=== PATIENT | male | born 1980 | race African-American/Black ===

== ENCOUNTER 2018-04-18 11:40 | Emergency (ER) | payer OTHER ==
[~2018-04-18] VITALS: Ht 185.4 cm; Wt 92.5 kg
[2018-04-18] MEDS ORDERED: GABAPENTIN600 MG ORAL (12:06)
[2018-04-18] MEDS ORDERED: AMLODIPINE BES2.5 MG ORAL (12:06)
--- NOTE | 2018-04-18 12:42 | Emergency Room Report ---
History of Present Illness General Chief Complaint: Medical Clearance Source: Patient Present Illness HPI 37-year-old male patient presents the ER requesting medical clearance to return back to work following syncopal episode. Patient reports that April 15 he went out and had a lot to drink. Reports that the following day at work he passed out, states that he was tired prior to passing out. Patient reports that his work asked him to come to the ER to be medically cleared to return back to work. Patient reports no history of's syncopal episodes in the past. Reports history of high blood pressure however denies history of stroke or heart attack. Patient reports that he had what was called a seizure once several months ago following similar episode of drinking. Denies history of seizure disorder. Reports has not seen a neurologist since that time. Denies fever, chest pain, shortness of breath. Reports "passing out" was observed and he did not hit his head. Denies vomiting or vision changes. Allergies: Coded Allergies: No Known Allergies (Unverified , 04/18/18) Patient History Past Medical History: see triage record Reviewed Nursing Documentation: PMH: Agreed; PSxH: Agreed Nursing Documentation-PMH Past Medical History: No History, Except For Hx Hypertension: Yes Review of Systems All Other Systems: negative except mentioned in HPI Physical Exam Vital Signs Date Time Temp Pulse Resp B/P (MAP) Pulse Ox O2 Delivery O2 Flow Rate FiO2 04/18/18 12:00 98.6 95 17 160/98 99 Room Air Sp02 EP Interpretation: reviewed, normal General Appearance: well appearing, no apparent distress, alert, GCS 15, non- toxic Head: normocephalic, atraumatic Eyes: bilateral eye normal inspection, bilateral eye PERRL ENT: hearing grossly normal, normal pharynx, no angioedema, normal voice, TMs + canals normal, uvula midline, moist mucus membranes Neck: full range of motion Respiratory: lungs clear, normal breath sounds, no rhonchi, no respiratory distress, no accessory muscle use, no wheezing, speaking full sentences Cardiovascular #1: regular rate, rhythm, no edema Gastrointestinal: non tender, soft, no mass, non-distended, no guarding, no rebound Genitourinary: no CVA tenderness Musculoskeletal: back normal, digits/nails normal, gait/station normal, normal range of motion, non-tender Neurologic: alert, oriented x3, responsive, engine mechanic III-XII nml as tested, motor strength/tone normal, sensory intact Psychiatric: mood/affect normal Skin: no rash Lymphatic: no adenopathy Medical Decision Making PA Attestation Dr. Bonilla is my supervising Physician whom patient management has been discussed with. Diagnostic Impression: Primary Impression: Episode of syncope ER Course Pt. presents to the ED c/o single episode of "passing out" 2 days ago. Ddx considered but are not limited to seizure, anemia, dehydration, alcohol complication, drug use, electrolyte abnormality, FL, TIA, narcolepsy. Vital signs: are WNL, pt. is afebrile, mild elevation of blood pressure, patient states did not take blood pressure medication today. blood pressure mildly elevated at this time, will continue to monitor. Denies chest pain, shortness of breath, vision changes, does not require acute intervention at ER at this time. Follow with primary care provider discuss further treatment and referral. Advised on low-sodium diet, advised on diet and exercise. ER COURSE: Physical exam benign, lungs clear to auscultation, no focal neuro deficits, cranial nerves intact as tested. Cap refill less than 2 seconds, normal skin turgor, moist mucous membranes, low suspicion for dehydration. X-ray negative for acute disease per the preliminary reading. EKG shows normal sinus rhythm, no ST elevations, no atrial fibrillation CT head negative for acute disease. Discuss results with the patient. Provided patient with copy of results. Instructed patient to followup with PCP and discuss results of report with patient, discuss need for further treatment and referral. Patient declined to provide blood work. Workman compensation paperwork completed. Follow-up with Workmen's Compensation physician for further treatment and referral as needed. Informed patient that ER cannot medically clear him to return to work, needs clearance from neurology and cardiology for unexplained syncopal episode. Completed Workmen's Comp. paperwork. Completed DMV paperwork stating patient is not safe to drive currently due to patient has having unexplained episode of syncope. ER precautions given. DISCHARGE: At this time pt is stable for d/c to home. Patient is resting comfortably, in no acute distress, nontoxic appearing, talking without difficulty. Patient to take medications as instructed Will provide with patient care instructions and any necessary prescriptions. Care plan and follow-up instructions provided. Patient instructed to follow-up with primary care provider in 3 - 5 days. Patient questions asked and answered. Patient reports understanding and agreement to treatment plan. ER precautions given. Patient instructed to return to ER immediately for any new or worsening of symptoms including but not limited to increasing SOB, persistent fever, chest pain, intractable vomiting. - Please note that this Emergency Department Report was dictated using [employer] sales consultant technology software, occasionally this can lead to erroneous entry secondary to interpretation by the dictation equipment. EKG Diagnostic Results Rate: normal Rhythm: NSR ST Segments: no acute changes ASA given to the pt in ED: No PA Scribe Text Ignacio Rodriguez PA-C Rhythm Strip Diag. Results EP Interpretation: yes Rate: 87 Rhythm: NSR, no PVC's, no ectopy PA Scribe Text Ignacio Rodriguez PA-C Chest X-Ray Diagnostic Results Chest X-Ray Diagnostic Results : Chest X-Ray Ordered: Yes # of Views/Limited/Complete: 1 View Indication: Chest Pain EP Interpretation: Yes PA Xray: Interpretation reviewed, by supervising MD, and agrees with findings. Interpretation: no consolidation, no effusion, no pneumothorax, no acute cardiopulmonary disease Impression: No acute disease PA Scribe Text Ignacio Rodriguze PA-C CT/MRI/US Diagnostic Results CT/MRI/US Diagnostic Results : Imaging Test Ordered: CT head Impression No evidence of acute intracranial hemorrhage, mass effect or cortical edema. MRI may be obtained for more sensitive evaluation as clinically indicated. Mild ethmoid sinus disease. Last Vital Signs Date Time Temp Pulse Resp B/P (MAP) Pulse Ox O2 Delivery O2 Flow Rate FiO2 04/18/18 12:10 95 17 Room Air 04/18/18 12:00 98.6 160/98 99 Disposition: HOME, SELF-CARE Condition: Stable Patient Instructions: Syncope, [id number] Additional Instructions: Followup with Workmen's Compensation physician and discuss referral to neurology for clearance to return back to normal work activities. ER cannot provide medical clearance to return back to work for unexplained episode of syncope. Do not drive or operate heavy machinery. Take medications as directed. Patient questions asked and answered. ER precautions given, patient instructed to return to ER immediately for any new or worsening of symptoms. Mark Rodriguez Apr 18, 2018 12:42
--- NOTE | 2018-04-18 13:03 | Diagnostic Imaging Report ---
Indication: Reason For Exam: SYNCOPE Technique: Continuous helical CT scanning of the head was performed without intravenous contrast material. Axial and coronal 5 mm sections were generated. Radiation dose was minimized using automated exposure control Dose: Total Dose Length Product - DLP 1392.[address] Dose Index - CTDIvol(s) 70.38 mGy. Comparison: None FINDINGS: There is no acute intracranial hemorrhage, mass effect or cortical edema. Terry-white differentiation is preserved. There is no shift of midline structures. The ventricles, cisterns and sulci are normal for age. Visualized mastoid air cells are clear. Mild mucosal thickening in some ethmoid air cells. Remainder the visualized paranasal sinuses clear. No focal lesions of the bony calvarium or soft tissues of the scalp are seen. IMPRESSION: No evidence of acute intracranial hemorrhage, mass effect or cortical edema. MRI may be obtained for more sensitive evaluation as clinically indicated. Mild ethmoid sinus disease. The CT scanner at [facility] is accredited by the [employer] and the scans are performed using protocols designed to limit radiation exposure to as low as reasonably achievable to attain images of sufficient resolution adequate for diagnostic evaluation.
--- NOTE | 2018-04-18 13:22 | Diagnostic Imaging Report ---
Indication: Syncope Technique: XRAY Chest 1v Comparison: None Findings: Heart size and mediastinal contours are within normal limits. There is no focal airspace consolidation, pleural effusion or pneumothorax. No acute osseous abnormality. Impression: No radiographic evidence of acute cardiopulmonary disease.
[2018-04-18 14:18] VITALS: BP 130/80
[2018-04-18 14:19] VITALS: BP 160/98
--- NOTE | 2018-04-20 17:39 | Cardiology Report ---
APPROVED REPORT EKG Measurement Heart [id number] Normal sinus rhythm Voltage for LVH Abnormal ECG
== END 2018-04-18 14:20 | disposition home or self-care (01) ==
LOC: EMR 13:30
DX: R55 Syncope and collapse (principal); I10 Essential (primary) hypertension; J32.2 Chronic ethmoidal sinusitis
CPT/HCPCS: 70450; 71045; 93005; 99284